=== PATIENT | male | born 1985 | race African-American/Black ===

== ENCOUNTER 2020-12-22 03:37 | Emergency (ER) | payer SELFPAY ==
[~2020-12-22] VITALS: Ht 180.3 cm; Wt 89.8 kg
[2020-12-22 03:38] VITALS: BP 144/103
[2020-12-22] MEDS ORDERED: IPRATROPIUM BROM 0.5 MG/2.5ML INH SOL NEB ONE (06:00)
[2020-12-22] MEDS ORDERED: ALBUTEROL SULF 2.5 MG/0.5ML(0.5%) NEB SOLN NEB ONE (06:00)
== END 2020-12-22 06:44 | disposition home or self-care (01) ==
LOC: ER 03:37
DX: J45.909 Unspecified asthma, uncomplicated (principal); Z76.0 Encounter for issue of repeat prescription
CPT/HCPCS: 93005; 94640; 99283; J7644